=== PATIENT | female | born 1950 | race Caucasian/White ===

== ENCOUNTER 2016-12-24 22:25 | Emergency (ER) | payer MEDICARE, OTHER ==
[~2016-12-24] VITALS: Ht 160 cm; Wt 88.6 kg
[~2016-12-24 22:25] MED LIST: CIPROFLOXACN500 MG PO; CORTISPORIN OTI10 M2 AS; DENIES CURRENT MEDS; NO HOME MEDS; PERCOCET 5/325M1 TAB PO
[2016-12-24 22:56] VITALS: BP 161/78
== END 2016-12-25 01:10 | disposition home or self-care (01) ==
LOC: ED 22:25
DX: S63.502A Unspecified sprain of left wrist, initial encounter (principal); W01.0XXA Fall on same level from slipping, tripping and stumbling without subsequent striking against object, initial encounter; Y92.511 Restaurant or cafe as the place of occurrence of the external cause